=== PATIENT | female | born 1970 ===

== ENCOUNTER 2017-11-03 07:18 | Day surgery (SDC) | payer MEDICAID ==
[2017-11-03] MEDS ORDERED: Lactated Ringer's 1,000 ML IV ONE (07:54)
[2017-11-03] MEDS ORDERED: Propofol 10 mg/ml Inj (20 ML) ONE (09:16)
[2017-11-03 09:33] VITALS: TEMP 97.1
[2017-11-03 09:46] VITALS: BP 107/60; PULSE 69; RESP 17; O2SAT 100
== END 2017-11-03 09:58 | disposition home or self-care (01) ==
LOC: H.ENDO 07:18
PROVIDERS: ATTEND Internal Medicine Gastroenterology
DX: K30 Functional dyspepsia (principal); K29.80 Duodenitis without bleeding; K29.50 Unspecified chronic gastritis without bleeding
CPT/HCPCS: 43239; 88305; J2704; J7120